=== PATIENT | male | born 1965 | race African-American/Black ===

== ENCOUNTER 2019-11-05 10:15 | Emergency (ER) | payer MEDICAID ==
[~2019-11-05] VITALS: Ht 172.7 cm; Wt 75.0 kg
[2019-11-05] MEDS ORDERED: IBUPROFEN 600MG TABLET PO ONE (10:45)
[2019-11-05] MEDS ORDERED: TETANUS, DIPHTHERIA, PERTUSSIS VAC/PF 0.5ML (>7YR OLD) IM ONE (10:45)
[2019-11-05 12:18] VITALS: BP 143/91
== END 2019-11-05 12:20 | disposition home or self-care (01) ==
LOC: ER 10:15
DX: S61.011A Laceration without foreign body of right thumb without damage to nail, initial encounter (principal); W27.0XXA Contact with workbench tool, initial encounter; Y93.89 Activity, other specified; Y92.89 Other specified places as the place of occurrence of the external cause; Z23 Encounter for immunization; R03.0 Elevated blood-pressure reading, without diagnosis of hypertension
CPT/HCPCS: 73130; 90471; 90715; 99283

== ENCOUNTER 2020-04-19 14:36 | Emergency (ER) | payer SELFPAY ==
[~2020-04-19] VITALS: Ht 157.5 cm; Wt 89.0 kg
[2020-04-19 17:34] LABS: CHLORIDE 111 mEq/L (98-107)
[2020-04-19 18:28] VITALS: BP 133/88
== END 2020-04-19 18:30 | disposition home or self-care (01) ==
LOC: ER 14:36
DX: H57.10 Ocular pain, unspecified eye (principal)
CPT/HCPCS: 36415; 80048; 83036; 99283